=== PATIENT | female | born 2000 | race Caucasian/White ===

== ENCOUNTER 2023-01-31 10:06 | Outpatient (CLI) | payer OTHER ==
[2023-01-31] VITALS (16 sets, daily range): BP systolic 99–124; BP diastolic 20–79; PULSE 86–122
== END 2023-01-31 23:59 | disposition home or self-care (01) ==
LOC: CARD DIAG 10:06
PROVIDERS: ATTEND Internal Medicine Interventional Cardiology
DX: R00.0 Tachycardia, unspecified (principal)
CPT/HCPCS: 93660